=== PATIENT | female | born 1990 | race Caucasian/White ===

== ENCOUNTER 2019-10-14 18:43 | Emergency (ER) | payer OTHER ==
[~2019-10-14] VITALS: Ht 167.6 cm; Wt 61.2 kg
== END 2019-10-14 19:49 | disposition home or self-care (01) ==
LOC: FSED 18:43
DX: R05 Cough (principal); J20.9 Acute bronchitis, unspecified; J04.0 Acute laryngitis
CPT/HCPCS: 99283